=== PATIENT | female | born 1960 | race Caucasian/White ===

== ENCOUNTER 2019-05-22 20:46 | Emergency (ER) | payer OTHER ==
[~2019-05-22] VITALS: Ht 165.1 cm; Wt 102.1 kg
[2019-05-22 21:09] VITALS: Ht 165.1 cm; Wt 102.1 kg
[2019-05-22 23:13] VITALS: BP 155/85
== END 2019-05-22 23:13 | disposition home or self-care (01) ==
LOC: ED 20:46
DX: S86.912A Strain of unspecified muscle(s) and tendon(s) at lower leg level, left leg, initial encounter (principal); X58.XXXA Exposure to other specified factors, initial encounter; Y93.89 Activity, other specified; Y92.89 Other specified places as the place of occurrence of the external cause; Y99.8 Other external cause status
CPT/HCPCS: J1885